=== PATIENT | female | born 1990 | race American Indian/Alaskan Native ===

== ENCOUNTER 2016-04-18 04:50 | Emergency (ER) | payer SELFPAY ==
[2016-04-18] MEDS ORDERED: PROVENTIL IH ONE (05:17)
[2016-04-18] MEDS ORDERED: ATROVENT IH ONE (05:17)
[2016-04-18 06:49] LABS: Bilirubin,Urine NEG (Negative); Blood,Urine NEG (Negative); Ketones,Urine NEG (Negative); Leukocyte Esterase,Urine NEG (Negative); Mucus,Urine FEW /HPF; Nitrite,Urine NEG (Negative); Protein,Urine <15 mg/dL mg/dL (Negative); Urobilinogen,Urine < 2.0 mg/dL (<2.0); WBC,Urine < 1.0 /HPF (0.0-6.0)
--- NOTE | 2016-04-18 07:15 | XRay Report ---
ROUTINE CHEST, TWO VIEWS: HISTORY: Wheezing. There is mild hyperinflation. The trachea, heart, mediastinal contour, lung curry and bony thorax are unremarkable. IMPRESSION: Mild hyperinflation.
--- NOTE | 2016-04-18 07:37 | Emergency Department Report ---
HPI - General Chief Complaint: Adult Asthma Time Seen by Provider: 04/18/16 07:15 - HPI HPI: 25-year-old female presents today complaining of difficulty in breathing and wheezing. Patient has history of asthma. She states she ran out of her albuterol 2 months. Patient states that her asthma is otherwise controlled but the weather may have exacerbated her symptoms. Denies fever, chills, nausea , vomiting, chest pain, abdominal pain. ED Past Medical Hx - Past Medical History Hx Asthma: Yes - Surgical History Additional Surgical History: d&c times 3 - Social History Smoking Status: Never Smoker Substance Use Type: None - Medications Home Medications: Home Medications Medication Instructions Recorded Confirmed Last Taken Type ALBUTEROL Inhaler [ProAir HFA 2 puff IH QID PRN #1 inhalation 04/18/16 Unknown Rx Inhaler] Albuterol Sulfate [Albuterol 0.63% 0.63 mg IH TID PRN #60 ml 04/18/16 Unknown Rx NEBS] Prednisone [predniSONE 10 mg 10 mg PO .TAPER #1 tab.ds.pk 04/18/16 Unknown Rx (6-Day Pack, 21 Tabs)] ED Review of Systems ROS: Stated complaint: ASTHMA Other details as noted in HPI Constitutional: denies: chills, fever, malaise Eyes: denies: eye pain ENT: denies: ear pain, throat pain, congestion Respiratory: shortness of breath, wheezing. denies: cough Cardiovascular: denies: chest pain, palpitations Endocrine: no symptoms reported Gastrointestinal: denies: abdominal pain, nausea, vomiting Neurological: denies: headache, weakness Physical Exam - Physical Exam Vital Signs: Vital Signs 04/18/16 04/18/16 04/18/16 04:57 05:24 05:59 Temperature 98.1 F Pulse Rate 99 H Pulse Rate [ 83 110 H Anterior Bilateral Throughout] Respiratory 18 Rate Respiratory 26 H 19 Rate [Anterior Bilateral Throughout] Blood Pressure 130/86 O2 Sat by Pulse 99 Oximetry Physical Exam: GENERAL: The patient is well-developed and well-nourished. Patient is in NAD. HEAD: Normocephalic. Atraumatic. EYES: PERRL. NOSE: Normal nasal mucosa with no nasal discharge. THROAT: No erythema, swelling or exudates. NECK: Supple, nontender, without lymphadenopathy. CHEST/LUNGS: Clear to auscultation throughout. (Examination was post medication) HEART/CARDIOVASCULAR: Regular rate and rhythm. ABDOMEN: Abdomen is soft, nontender. No guarding or rebound tenderness. EXTREMITIES: Peripheral pulses intact. Capillary refill less than 2 seconds. NEURO: Alert and oriented x 3. Normal gait. ED Course Vital Signs 04/18/16 04/18/16 04/18/16 04:57 05:24 05:59 Temperature 98.1 F Pulse Rate 99 H Pulse Rate [ 83 110 H Anterior Bilateral Throughout] Respiratory 18 Rate Respiratory 26 H 19 Rate [Anterior Bilateral Throughout] Blood Pressure 130/86 O2 Sat by Pulse 99 Oximetry ED Medical Decision Making - Lab Data Vital Signs 04/18/16 04/18/16 04/18/16 04:57 05:24 05:59 Temperature 98.1 F Pulse Rate 99 H Pulse Rate [ 83 110 H Anterior Bilateral Throughout] Respiratory 18 Rate Respiratory 26 H 19 Rate [Anterior Bilateral Throughout] Blood Pressure 130/86 Blood Pressure [Left] O2 Sat by Pulse 99 Oximetry 04/18/16 07:41 Temperature 97.7 F Pulse Rate 80 Pulse Rate [ Anterior Bilateral Throughout] Respiratory 12 Rate Respiratory Rate [Anterior Bilateral Throughout] Blood Pressure Blood Pressure 120/74 [Left] O2 Sat by Pulse 100 Oximetry - Radiology Data Radiology results: report reviewed Chest x-ray: There is mild hyperinflation. The trachea, heart, because to contact 4, lung curry and bony thorax are unremarkable. - Medical Decision Making 25-year-old female presents today with an asthma exacerbation. Patient reported symptomatic relief post-neb treatment. She would also like a refill of albuterol. Patient is in no acute distress at this time. She will be discharged home and is encouraged to follow up with a primary care provider. She will be sent home on albuterol neb treatment, albuterol inhaler and steroid pack and is encouraged to return to the emergency room for any worsening symptoms. Critical care attestation.: If time is entered above; I have spent that time in minutes in the direct care of this critically ill patient, excluding procedure time. ED Disposition Clinical Impression: Asthma Qualifiers: Asthma severity: unspecified severity Asthma complication type: with acute exacerbation Qualified Code(s): J45.901 - Unspecified asthma with (acute) exacerbation Disposition: DISCHARGED TO HOME OR SELFCARE Is pt being admited?: No Does the pt Need Aspirin: No Condition: Stable Instructions: Asthma (ED) Additional Instructions: Follow-up with primary care provider. Return to the emergency department if symptoms worsen. Prescriptions: ALBUTEROL Inhaler [ProAir HFA Inhaler] 2 puff IH QID PRN #1 inhalation PRN Reason: Shortness Of Breath Albuterol Sulfate [Albuterol 0.63% NEBS] 0.63 mg IH TID PRN #60 ml PRN Reason: Wheezing Prednisone [predniSONE 10 mg (6-Day Pack, 21 Tabs)] 10 mg PO .TAPER #1 tab.ds.pk Referrals: PRIMARY CARE, [Primary Care Provider] - 3-5 Days [facility] [Outside] - 3-5 Days Forms: Accompanied Note, Work/School Release Form(ED) Time of Disposition: 07:37
[2016-04-18 07:43] VITALS: BP 120/74
== END 2016-04-18 07:50 | disposition home or self-care (01) ==
LOC: ED 04:50
DX: J45.901 Unspecified asthma with (acute) exacerbation (principal)
CPT/HCPCS: 71020; 81001; 81025; 94640; 96372; 99284; J2930

== ENCOUNTER 2016-11-24 08:39 | Emergency (ER) | payer SELFPAY ==
[2016-11-24] MEDS ORDERED: DUONEB *Not for PRN Use IH ONE (09:48)
[2016-11-24 10:54] VITALS: BP 115/70
--- NOTE | 2016-11-24 11:38 | Emergency Department Report ---
ED Asthma HPI - General Chief Complaint: Adult Asthma Stated Complaint: ASTHMA Time Seen by Provider: 11/24/16 11:19 Source: patient Mode of arrival: Ambulatory Limitations: No Limitations - History of Present Illness Initial Comments: " I had an asthma attack last night after going to [facility] and being exposes to shellfish , symptoms resolved now but out of albuterol" there is no sob no headache no dizziness no n/v no wheezing at this time. MD Complaint: "asthma attack", wheezing -: days(s) Asthma History: childhood onset, history of frequent attac Severity: moderate Context: allergen exposure (shellfish) Associated Symptoms: denies: productive cough, dry cough, fever, chest pain, hemoptysis, leg edema, syncope Treatments Prior to Arrival: inhaled bronchodilator - Related Data Current Asthma Therapy: inhaled bronchodilator (prn ) Previous Rx's Medication Instructions Recorded Last Taken Type Albuterol Sulfate [Albuterol 0.63% 0.63 mg IH TID PRN #60 ml 04/18/16 Unknown Rx NEBS] ALBUTEROL Inhaler [ProAir HFA 2 puff IH QID PRN #1 inhalation 11/24/16 Unknown Rx Inhaler] Metoclopramide [Reglan] 10 mg PO TID PRN #21 tab 11/24/16 Unknown Rx Prednisone [predniSONE 10 mg 10 mg PO .TAPER #1 tab.ds.pk 11/24/16 Unknown Rx (6-Day Pack, 21 Tabs)] diphenhydrAMINE [Benadryl CAP] 25 mg PO Q6HR PRN #30 capsule 11/24/16 Unknown Rx Allergies Allergy/AdvReac Type Severity Reaction Status Date / Time shellfish derived Allergy Shortness Verified 01/18/16 17:19 of Breath ED Review of Systems ROS: Stated complaint: ASTHMA Other details as noted in HPI Constitutional: denies: chills, fever Eyes: denies: eye pain, eye discharge, vision change ENT: denies: ear pain, throat pain Respiratory: denies: cough, shortness of breath, wheezing Cardiovascular: denies: chest pain, palpitations Endocrine: no symptoms reported Gastrointestinal: denies: abdominal pain, nausea, diarrhea Genitourinary: denies: urgency, dysuria, discharge Musculoskeletal: denies: back pain, joint swelling, arthralgia Skin: denies: rash, lesions Neurological: denies: headache, weakness, paresthesias Psychiatric: denies: anxiety, depression Hematological/Lymphatic: denies: easy bleeding, easy bruising ED Past Medical Hx - Past Medical History Previous Medical History?: Yes Hx Asthma: Yes - Surgical History Past Surgical History?: Yes Additional Surgical History: d&c times 3 - Social History Smoking Status: Never Smoker Substance Use Type: Alcohol, Prescribed - Medications Home Medications: Home Medications Medication Instructions Recorded Confirmed Last Taken Type Albuterol Sulfate [Albuterol 0.63% 0.63 mg IH TID PRN #60 ml 04/18/16 Unknown Rx NEBS] ALBUTEROL Inhaler [ProAir HFA 2 puff IH QID PRN #1 inhalation 11/24/16 Unknown Rx Inhaler] Metoclopramide [Reglan] 10 mg PO TID PRN #21 tab 11/24/16 Unknown Rx Prednisone [predniSONE 10 mg 10 mg PO .TAPER #1 tab.ds.pk 11/24/16 Unknown Rx (6-Day Pack, 21 Tabs)] diphenhydrAMINE [Benadryl CAP] 25 mg PO Q6HR PRN #30 capsule 11/24/16 Unknown Rx ED Physical Exam - General Limitations: No Limitations General appearance: alert, in no apparent distress - Head Head exam: Present: atraumatic, normocephalic - Eye Eye exam: Present: normal appearance, PERRL, EOMI Pupils: Present: normal accommodation - ENT ENT exam: Present: mucous membranes moist, TM's normal bilaterally, normal external ear exam - Expanded ENT Exam Expanded Mouth exam: Present: normal external inspection Teeth exam: Present: normal inspection Throat exam: Positive: normal inspection. Negative: tonsillar erythema, tonsillomegaly, tonsillar exudate, R peritonsillar mass, L peritonsillar mass - Neck Neck exam: Present: normal inspection, full ROM. Absent: tenderness, lymphadenopathy, thyromegaly - Respiratory Respiratory exam: Present: normal lung sounds bilaterally. Absent: respiratory distress, wheezes, rales, rhonchi, stridor, chest wall tenderness, accessory muscle use, decreased breath sounds, prolonged expiratory - Cardiovascular Cardiovascular Exam: Present: regular rate, normal rhythm, normal heart sounds. Absent: systolic murmur, diastolic murmur, rubs, gallop - GI/Abdominal GI/Abdominal exam: Present: soft, normal bowel sounds. Absent: distended, tenderness, guarding, mass, bruit, hernia - Rectal Rectal exam: Present: deferred - Extremities Exam Extremities exam: Present: normal inspection, full ROM, normal capillary refill. Absent: tenderness, pedal edema, joint swelling, calf tenderness - Back Exam Back exam: Present: normal inspection, full ROM. Absent: tenderness, rash noted - Neurological Exam Neurological exam: Present: alert, oriented X3, CN II-XII intact, normal gait, reflexes normal. Absent: motor sensory deficit - Expanded Neurological Exam Expanded Patient oriented to: Present: person, place, time Speech: Present: fluid speech Cranial nerves: EOM's Intact: Normal, Gag Reflex: Normal, Tongue Deviation: Normal, Nystagmus: Normal, Facial Sensation: Normal Cerebellar function: Finger to Nose: Normal, Heel to Zhu: Normal, Romberg: Normal Motor strength exam: RUE: 5, LUE: 5, RLE: 5, LLE: 5 Best Eye Response ([place]): (4) open spontaneously Best Motor Response ([place]): (6) obeys commands Best Verbal Response ([place]): (5) oriented [place] Total: 15 - Psychiatric Psychiatric exam: Present: normal affect, normal mood - Skin Skin exam: Present: warm, dry, intact, normal color. Absent: rash, cyanosis, diaphoretic, erythema, urticaria, vesicles, petechiae, pallor, abrasion, ecchymosis ED Course Vital Signs 11/24/16 11/24/16 08:49 10:50 Temperature 98.1 F Pulse Rate 94 H 96 H Respiratory 18 Rate Blood Pressure 121/76 115/70 O2 Sat by Pulse 100 100 Oximetry ED Medical Decision Making - Medical Decision Making " I had an asthma attack last night after going to [facility] and being exposes to shellfish , symptoms resolved now but out of albuterol" there is no sob no headache no dizziness no n/v no wheezing at this time. exam: ENT: pharynx: no erythema no swelling no exudate no lesion uvula midline no stridor airway is patent lungs clear bilat no wheezing , there is no rash no hives no sob pt is a/ o x 3 ambulatory gait steady with nad , will refill albuterol , steroid taper, epipen including epipen teaching pt will follow up primary care upon appointment in 3 days, pt verbalized agreement and understanding with discharge plan. Critical care attestation.: If time is entered above; I have spent that time in minutes in the direct care of this critically ill patient, excluding procedure time. ED Disposition Clinical Impression: Acute asthma Allergic reaction Qualifiers: Encounter type: initial encounter Qualified Code(s): T78.40XA - Allergy, unspecified, initial encounter Disposition: TO HOME OR SELFCARE Is pt being admited?: No Does the pt Need Aspirin: No Condition: Good Instructions: Asthma (ED) Prescriptions: ALBUTEROL Inhaler [ProAir HFA Inhaler] 2 puff IH QID PRN #1 inhalation PRN Reason: Shortness Of Breath diphenhydrAMINE [Benadryl CAP] 25 mg PO Q6HR PRN #30 capsule PRN Reason: allergies/itching Metoclopramide [Reglan] 10 mg PO TID PRN #21 tab PRN Reason: allergies Prednisone [predniSONE 10 mg (6-Day Pack, 21 Tabs)] 10 mg PO .TAPER #1 tab.ds.pk Referrals: PRIMARY CARE,MD [Primary Care Provider] - 3-5 Days Forms: Work/School Release Form(ED) Time of Disposition: 11:43
[2016-11-24] MEDS ORDERED: DUONEB *Not for PRN Use IH SCH (12:00)
== END 2016-11-24 12:13 | disposition home or self-care (01) ==
LOC: ED 08:39
DX: T78.40XA Allergy, unspecified, initial encounter (principal); J45.909 Unspecified asthma, uncomplicated; Y92.9 Unspecified place or not applicable
CPT/HCPCS: 94640

== ENCOUNTER 2018-03-15 08:04 | Emergency (ER) | payer MEDICAID ==
[2018-03-15 08:14] VITALS: BP 134/80
[2018-03-15] MEDS ORDERED: SOLU-Medrol IM ONE (08:20)
[2018-03-15] MEDS ORDERED: DUONEB *Not for PRN Use IH ONE (08:20)
[2018-03-15] MEDS ORDERED: ROBITUSSIN PO ONE (08:20)
--- NOTE | 2018-03-15 08:21 | Emergency Department Report ---
ED Asthma HPI - General Chief Complaint: Adult Asthma Stated Complaint: ASTHMA FLARE UP Time Seen by Provider: 03/15/18 08:18 Source: patient Mode of arrival: Ambulatory Limitations: No Limitations - History of Present Illness Initial Comments: Patient is a 27-year-old female with a history of asthma who presents to ED complaining of a flareup that started this morning. Patient states that she has a shellfish allergy and last night was around her mother's house. Patient states that her mother was boiling some shellfish and she was inhaling it. Vahe lynn states that this morning she noticed that she started to wheeze little bit of difficulty taking full deep breaths. She states that she felt some tightness in her chest. Denies fever assess show/nausea vomiting/difficulty swallowing or throat pain or swelling. - Related Data Previous Rx's Medication Instructions Recorded Last Taken Type Metoclopramide [Reglan] 10 mg PO TID PRN #21 tab 11/24/16 Unknown Rx diphenhydrAMINE [Benadryl CAP] 25 mg PO Q6HR PRN #30 capsule 11/24/16 Unknown Rx ALBUTEROL Inhaler (OR & NICU) 2 puff IH QID PRN #1 inhalation 03/15/18 Unknown Rx [ProAir HFA Inhaler] Albuterol Sulfate [Albuterol 0.63% 0.63 mg IH TID PRN #60 ml 03/15/18 Unknown Rx NEBS] Prednisone [predniSONE 10 mg 10 mg PO .TAPER #1 tab.ds.pk 03/15/18 Unknown Rx (6-Day Pack, 21 Tabs)] Allergies Allergy/AdvReac Type Severity Reaction Status Date / Time shellfish derived Allergy Shortness Verified 01/18/16 17:19 of Breath ED Review of Systems ROS: Stated complaint: ASTHMA FLARE UP Other details as noted in HPI Comment: All other systems reviewed and negative ED Past Medical Hx - Past Medical History Previous Medical History?: Yes Hx Asthma: Yes - Surgical History Past Surgical History?: Yes Additional Surgical History: d&c times 3 - Social History Smoking Status: Never Smoker Substance Use Type: None - Medications Home Medications: Home Medications Medication Instructions Recorded Confirmed Last Taken Type Metoclopramide [Reglan] 10 mg PO TID PRN #21 tab 11/24/16 Unknown Rx diphenhydrAMINE [Benadryl CAP] 25 mg PO Q6HR PRN #30 capsule 11/24/16 Unknown Rx ALBUTEROL Inhaler (OR & NICU) 2 puff IH QID PRN #1 inhalation 03/15/18 Unknown Rx [ProAir HFA Inhaler] Albuterol Sulfate [Albuterol 0.63% 0.63 mg IH TID PRN #60 ml 03/15/18 Unknown Rx NEBS] Prednisone [predniSONE 10 mg 10 mg PO .TAPER #1 tab.ds.pk 03/15/18 Unknown Rx (6-Day Pack, 21 Tabs)] ED Physical Exam - General Limitations: No Limitations General appearance: alert, in no apparent distress - Head Head exam: Present: atraumatic, normocephalic - Eye Eye exam: Present: normal appearance - ENT ENT exam: Present: mucous membranes moist - Neck Neck exam: Present: normal inspection, full ROM. Absent: tenderness, lymphadenopathy - Respiratory Respiratory exam: Present: normal lung sounds bilaterally, wheezes (moderately anterior chest right sided). Absent: respiratory distress, rales, rhonchi, stridor, chest wall tenderness, accessory muscle use - Cardiovascular Cardiovascular Exam: Present: regular rate, normal rhythm. Absent: systolic murmur, diastolic murmur, rubs, gallop - GI/Abdominal GI/Abdominal exam: Present: soft, normal bowel sounds - Extremities Exam Extremities exam: Present: normal inspection - Back Exam Back exam: Present: normal inspection - Neurological Exam Neurological exam: Present: alert, oriented X3 - Psychiatric Psychiatric exam: Present: normal affect, normal mood - Skin Skin exam: Present: warm, dry, intact, normal color. Absent: rash ED Course Vital Signs 03/15/18 03/15/18 03/15/18 08:11 09:00 09:01 Temperature 98.2 F Pulse Rate 98 H Pulse Rate [ 85 95 H Posterior] Respiratory 20 Rate Respiratory 17 27 H Rate [Posterior ] Blood Pressure 134/80 O2 Sat by Pulse 100 Oximetry ED Medical Decision Making - Radiology Data Radiology results: report reviewed, image reviewed Fluoro Time In Minutes: ROUTINE CHEST, TWO VIEWS: HISTORY: Short of breath. The trachea, heart, mediastinal contour, lung curry and bony thorax are unremarkable. No change since 04/18/16. IMPRESSION: Unremarkable chest x-ray. Transcribed By: TTR Dictated By: BABAK WU JR, MD Electronically Authenticated By: BABAK WU JR, MD Signed Date/Time: 03/15/18 0901 - Medical Decision Making 27-year-old female presents with asthma exacerbation (Mild) ED course: Patient received a breathing treatment, Solu-Medrol, cough suppressant in the ED. Chest x-ray ordered, chest x-ray shows no acute findings. Patient had no respiratory distress in the ED. Post treatment evaluation: No wheezing heard, no use of accessory muscles, I discussed with the patient to follow up with her primary care physician. I discussed with the patient will be going home on with albuterol inhaler as well as nebulizer Vital signs are normalized, patient is saturation at 100% on room air. I discussed with the patient is symptoms worsen to return to ED immediately. Critical care attestation.: If time is entered above; I have spent that time in minutes in the direct care of this critically ill patient, excluding procedure time. ED Disposition Clinical Impression: Asthma exacerbation Qualifiers: Asthma severity: mild Asthma persistence: unspecified Qualified Code(s): J45.901 - Unspecified asthma with (acute) exacerbation Disposition: DC-01 TO HOME OR SELFCARE Is pt being admited?: No Does the pt Need Aspirin: No Condition: Stable Instructions: Asthma (ED) Additional Instructions: Make sure to follow up with the primary care physician as discussed. Take all your medications as you've been prescribed. If you have any worsening symptoms or develop new symptoms please return to ED immediately. Prescriptions: ALBUTEROL Inhaler (OR & NICU) [ProAir HFA Inhaler] 2 puff IH QID PRN #1 inhalation PRN Reason: Shortness Of Breath Albuterol Sulfate [Albuterol 0.63% NEBS] 0.63 mg IH TID PRN #60 ml PRN Reason: Wheezing Prednisone [predniSONE 10 mg (6-Day Pack, 21 Tabs)] 10 mg PO .TAPER #1 tab.ds.pk Referrals: PRIMARY CARE, [Primary Care Provider] - 3-5 Days [facility] [Outside] - 3-5 Days [facility] [Outside] - 3-5 Days Forms: Work/School Release Form(ED) Time of Disposition: 09:25
--- NOTE | 2018-03-15 09:03 | XRay Report ---
ROUTINE CHEST, TWO VIEWS: HISTORY: Short of breath. The trachea, heart, mediastinal contour, lung curry and bony thorax are unremarkable. No change since 04/18/16. IMPRESSION: Unremarkable chest x-ray.
== END 2018-03-15 09:54 | disposition home or self-care (01) ==
LOC: ED 08:04
DX: J45.901 Unspecified asthma with (acute) exacerbation (principal); Z91.013 Allergy to seafood
CPT/HCPCS: 71046; 94640; 96372; 99283; J2930

== ENCOUNTER 2021-02-26 08:50 | Emergency (ER) | payer MEDICAID ==
[2021-02-26] MEDS ORDERED: IPRATROPIUM 0.02% NEBU 2.5 ML IH ONE (09:21)
[2021-02-26] MEDS ORDERED: ALBUTEROL 2.5 MG/3 ML NEBU IH ONE (09:21)
[2021-02-26] MEDS ORDERED: FAMOTIDINE 20 MG/2 ML INJ IV ONE (09:21)
[2021-02-26] MEDS ORDERED: dexAMETHasone 20 MG/5 ML VIAL IV ONE (09:21)
--- NOTE | 2021-02-26 09:24 | Emergency Department Report ---
ED Asthma HPI - General Chief Complaint: Adult Asthma Stated Complaint: ASTHMA Time Seen by Provider: 02/26/21 09:20 Source: patient Mode of arrival: Ambulatory Limitations: No Limitations - History of Present Illness Initial Comments: 30-year-old -[place] female presents to the emergency room complaining of shortness of breath and wheezing since about 1 AM this morning. Patient states that she was exposed to seafood smell when her boyfriend cooks seafood. She states she has an allergy to seafood. She does also have a history of asthma and has been using her inhaler and ran out. Patient denies any fever chills no nausea no vomiting. MD Complaint: shortness of breath, wheezing -: This morning Time: 01:00 Asthma History: history of frequent attac Severity: severe Context: ran out of meds, allergen exposure (seafood) Associated Symptoms: dry cough - Related Data Current Asthma Therapy: inhaled bronchodilator Previous Rx's Medication Instructions Recorded Last Taken Type Metoclopramide [Reglan] 10 mg PO TID PRN #21 tab 11/24/16 Unknown Rx diphenhydrAMINE [Benadryl CAP] 25 mg PO Q6HR PRN #30 capsule 11/24/16 Unknown Rx Albuterol Mdi (or & Nicu Only) 2 puff IH QID PRN #1 inhalation 03/15/18 Unknown Rx [ProAir HFA Inhaler] Albuterol Sulfate [Albuterol 0.63% 0.63 mg IH TID PRN #60 ml 03/15/18 Unknown Rx NEBS] Prednisone [predniSONE 10 mg 10 mg PO .TAPER #1 tab.ds.pk 03/15/18 Unknown Rx (6-Day Pack, 21 Tabs)] ALBUTEROL NEB's [Proventil 0.083% 2.5 mg IH TID PRN #1 box 02/26/21 Unknown Rx NEBS] Albuterol Sulfate [Proair 90 mcg IH QID PRN #1 aer.pow.ba 02/26/21 Unknown Rx Respiclick] Nebulizer Accessories [Adult 1 each MC QID #1 each 02/26/21 Unknown Rx Aerosol Mask] Nebulizer and Compressor [Easy Air 1 each MC QID PRN #1 each 02/26/21 Unknown Rx Compressor Nebulizer] predniSONE [Deltasone] 40 mg PO QDAY 5 Days #10 tab 02/26/21 Unknown Rx Allergies Allergy/AdvReac Type Severity Reaction Status Date / Time shellfish derived Allergy Shortness Verified 02/26/21 08:59 of Breath ED Review of Systems ROS: Stated complaint: ASTHMA Other details as noted in HPI Comment: All other systems reviewed and negative ED Past Medical Hx - Past Medical History Hx Asthma: Yes - Surgical History Additional Surgical History: d&c times 3 - Social History Smoking Status: Never Smoker Substance Use Type: None - Medications Home Medications: Home Medications Medication Instructions Recorded Confirmed Last Taken Type Metoclopramide [Reglan] 10 mg PO TID PRN #21 tab 11/24/16 Unknown Rx diphenhydrAMINE [Benadryl CAP] 25 mg PO Q6HR PRN #30 capsule 11/24/16 Unknown Rx Albuterol Mdi (or & Nicu Only) 2 puff IH QID PRN #1 inhalation 03/15/18 Unknown Rx [ProAir HFA Inhaler] Albuterol Sulfate [Albuterol 0.63% 0.63 mg IH TID PRN #60 ml 03/15/18 Unknown Rx NEBS] Prednisone [predniSONE 10 mg 10 mg PO .TAPER #1 tab.ds.pk 03/15/18 Unknown Rx (6-Day Pack, 21 Tabs)] ALBUTEROL NEB's [Proventil 0.083% 2.5 mg IH TID PRN #1 box 02/26/21 Unknown Rx NEBS] Albuterol Sulfate [Proair 90 mcg IH QID PRN #1 aer.pow.ba 02/26/21 Unknown Rx Respiclick] Nebulizer Accessories [Adult 1 each MC QID #1 each 02/26/21 Unknown Rx Aerosol Mask] Nebulizer and Compressor [Easy Air 1 each MC QID PRN #1 each 02/26/21 Unknown Rx Compressor Nebulizer] predniSONE [Deltasone] 40 mg PO QDAY 5 Days #10 tab 02/26/21 Unknown Rx ED Physical Exam - General Limitations: No Limitations General appearance: alert, in no apparent distress, in distress - Head Head exam: Present: atraumatic, normocephalic - Eye Eye exam: Present: normal appearance - ENT ENT exam: Present: mucous membranes moist, normal external ear exam - Neck Neck exam: Present: normal inspection, full ROM. Absent: tenderness, lymphadenopathy - Respiratory Respiratory exam: Present: wheezes, accessory muscle use, prolonged expiratory - Cardiovascular Cardiovascular Exam: Present: tachycardia - GI/Abdominal GI/Abdominal exam: Present: soft - Extremities Exam Extremities exam: Present: normal inspection, full ROM - Back Exam Back exam: Present: normal inspection, full ROM - Neurological Exam Neurological exam: Present: alert, oriented X3, normal gait - Psychiatric Psychiatric exam: Present: normal affect, normal mood - Skin Skin exam: Present: warm, dry, intact, normal color. Absent: rash ED Course Vital Signs 02/26/21 08:59 Temperature 99.2 F Pulse Rate 128 H Respiratory 28 H Rate Blood Pressure 140/89 O2 Sat by Pulse 98 Oximetry - Reevaluation(s) Reevaluation #1: 02/26/21 10:54 Patient reports she feels much better after having medications and treatment. Patient's lungs are clear. She is no longer using accessory muscles. ED Medical Decision Making - Medical Decision Making 30-year-old -[place] female presents to the emergency room complaining of shortness of breath and wheezing since about 1 AM this morning. Patient states that she was exposed to seafood smell when her boyfriend cooks seafood. She states she has an allergy to seafood. She does also have a history of asthma and has been using her inhaler and ran out. Patient denies any fever chills no nausea no vomiting. INT, dexamethasone 10 mg IV, Pepcid 20 mg IV, albuterol 5 mg inhalation, Atrovent 1 mg inhalation. Patient will be discharged home on prednisone, albuterol inhaler, and nebulizer machine and albuterol nebs Critical care attestation.: If time is entered above; I have spent that time in minutes in the direct care of this critically ill patient, excluding procedure time. ED Disposition Clinical Impression: Asthma attack Disposition: HOME / SELF CARE / HOMELESS Is pt being admited?: No Does the pt Need Aspirin: No Condition: Stable Instructions: Asthma Attack Prevention, Adult, Asthma, Adult, [id number] Additional Instructions: Complete prednisone as prescribed use your inhaler or nebulizer as prescribed. Follow-up with your primary care provider. Prescriptions: Nebulizer Accessories [Adult Aerosol Mask] 1 each MC QID #1 each predniSONE [Deltasone] 40 mg PO QDAY 5 Days #10 tab Nebulizer and Compressor [Easy Air Compressor Nebulizer] 1 each MC QID PRN #1 each PRN Reason: Wheezing Albuterol Sulfate [Proair Respiclick] 90 mcg IH QID PRN #1 aer.pow.ba PRN Reason: Wheezing ALBUTEROL NEB's [Proventil 0.083% NEBS] 2.5 mg IH TID PRN #1 box PRN Reason: Wheezing Time of Disposition: 11:00
[2021-02-26 11:38] VITALS: BP 116/72
== END 2021-02-26 11:38 | disposition home or self-care (01) ==
LOC: ED 08:50
DX: J45.901 Unspecified asthma with (acute) exacerbation (principal); Z91.013 Allergy to seafood
CPT/HCPCS: 94640; 96374; 96375; 99283; J1100; J3490